=== PATIENT | female | born 1945 | race American Indian/Alaskan Native ===

== ENCOUNTER 2021-07-09 10:15 | Emergency (ER) | payer MEDICARE ==
--- NOTE | 2021-07-09 12:53 | Emergency Department Report ---
- General Chief complaint: Skin/Abscess/Foreign Body Stated complaint: KNOT ON HEAD Time Seen by Provider: 07/09/21 12:43 Source: patient Mode of arrival: Ambulatory Limitations: No Limitations - History of Present Illness Initial comments: 75-year-old -[place] female presents to the emergency room stating that she noticed she had a knot on the right side of her head. Patient states that it was the size of a walnut and then later on it was the size of a half limited and states that it has gone down. She states she just feels pressure behind her right eye and pain behind her right ear. She denies any fever denies any injuries. She denies any change in vision and has taken nothing for her pain. She has a past medical history of hypertension diabetes acid reflux and hypothyroidism. Patient denies being on any blood thinners. She states that she did not take her blood pressure medication today. Her primary care provider is Dr. Rupert Kang. Onset/Timin -: days(s) Tetanus Up to Date: yes Location: head Severity scale (0 -10): 2 Quality: other (Tender) Consistency: intermittent Improves with: none Worsens with: palpation Context: none Associated symptoms: denies other symptoms Treatments Prior to Arrival: none - Related Data Previous Rx's Medication Instructions Recorded Last Taken Type Doxycycline Hyclate [Doxycycline 100 mg PO Q12HR 7 Days #14 tab 07/09/21 Unknown Rx Hyclate TAB] Allergies Allergy/AdvReac Type Severity Reaction Status Date / Time clindamycin HCl Allergy Dizziness Unverified 01/17/14 08:35 [From Cleocin] clindamycin palmitate HCl Allergy Dizziness Unverified 01/17/14 08:35 [From Cleocin] clindamycin phosphate Allergy Dizziness Unverified 01/17/14 08:35 [From Cleocin] Penicillins Allergy Hives Unverified 01/17/14 08:35 Sulfa (Sulfonamide Allergy Hives Unverified 01/17/14 08:35 Antibiotics) Abscess Boil HPI - HPI Chief Complaint: Skin/Abscess/Foreign Body Stated Complaint: KNOT ON HEAD Time Seen by Provider: 07/09/21 12:43 Home Medications: Previous Rx's Medication Instructions Recorded Last Taken Type Doxycycline Hyclate [Doxycycline 100 mg PO Q12HR 7 Days #14 tab 07/09/21 Unknown Rx Hyclate TAB] Allergies/Adverse Reactions: Allergies Allergy/AdvReac Type Severity Reaction Status Date / Time clindamycin HCl Allergy Dizziness Unverified 01/17/14 08:35 [From Cleocin] clindamycin palmitate HCl Allergy Dizziness Unverified 01/17/14 08:35 [From Cleocin] clindamycin phosphate Allergy Dizziness Unverified 01/17/14 08:35 [From Cleocin] Penicillins Allergy Hives Unverified 01/17/14 08:35 Sulfa (Sulfonamide Allergy Hives Unverified 01/17/14 08:35 Antibiotics) ED Review of Systems ROS: Stated complaint: KNOT ON HEAD Other details as noted in HPI Comment: All other systems reviewed and negative ED Past Medical Hx - Medications Home Medications: Home Medications Medication Instructions Recorded Confirmed Last Taken Type Doxycycline Hyclate [Doxycycline 100 mg PO Q12HR 7 Days #14 tab 07/09/21 Unknown Rx Hyclate TAB] ED Physical Exam - General Limitations: No Limitations General appearance: alert, in no apparent distress - Head Head exam: Present: other (Right parietal soft mass size of a small grape that is tender to touch. Right posterior auricular tender to touch) - Eye Eye exam: Present: normal appearance, other (wears glasses) - ENT ENT exam: Present: normal external ear exam - Neck Neck exam: Present: normal inspection, full ROM - Respiratory Respiratory exam: Absent: respiratory distress, accessory muscle use - Cardiovascular Cardiovascular Exam: Present: regular rate - Extremities Exam Extremities exam: Present: normal inspection, full ROM - Back Exam Back exam: Present: normal inspection, full ROM - Neurological Exam Neurological exam: Present: alert, oriented X3, normal gait - Psychiatric Psychiatric exam: Present: normal affect, normal mood - Skin Skin exam: Present: warm, dry, intact, normal color. Absent: rash ED Course Vital Signs 07/09/21 11:04 Temperature 98.5 F Pulse Rate 83 Respiratory 17 Rate Blood Pressure 159/96 O2 Sat by Pulse 98 Oximetry ED Medical Decision Making - Medical Decision Making 75-year-old -[place] female presents to the emergency room stating that she noticed she had a knot on the right side of her head. Patient states that it was the size of a walnut and then later on it was the size of a half limited and states that it has gone down. She states she just feels pressure behind her right eye and pain behind her right ear. She denies any fever denies any injuries. She denies any change in vision and has taken nothing for her pain. She has a past medical history of hypertension diabetes acid reflux and hypothyroidism. Patient denies being on any blood thinners. She states that she did not take her blood pressure medication today. Her primary care provider is Dr. Rupert Kang. Dr. Chatterjee came to evaluate patient as well. Who agreed with treated for ce llulitis of her scalp. Patient be placed on doxycycline 100 mg twice a day for 7 days. Patient can take pain medication. Increase her fluids follow-up with her doctor. Critical care attestation.: If time is entered above; I have spent that time in minutes in the direct care of this critically ill patient, excluding procedure time. ED Disposition Clinical Impression: Cellulitis and abscess of head Disposition: 01 HOME / SELF CARE / HOMELESS Is pt being admited?: No Does the pt Need Aspirin: No Condition: Stable Instructions: Cellulitis, Adult, [id number] Additional Instructions: Take antibiotics as prescribed. Tylenol ibuprofen for pain as needed. Prescriptions: Doxycycline Hyclate [Doxycycline Hyclate TAB] 100 mg PO Q12HR 7 Days #14 tab Referrals: RUPERT KEY MD [Referring] - 3-5 Days Time of Disposition: 13:06
--- NOTE | 2021-07-09 13:02 | Event Note ---
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 Patient presented with 1 day history of scalp swelling in the right parietal area. There is no trauma associated with this. She states that the area is tender. The pain has extended caudally. She has no fevers or chills per there is no cough congestion. On exam, patient is a well-developed female in no distress but she does not appear to be toxic. She has a tender and boggy area in the right parietal area. There is warmth and erythema associated with this. This is consistent with a cellulitis. She does not have pain out of proportion to exam. This does not appear to be indurated consistent with an abscess. She was treated symptomatically and empirically for a cellulitis and referred for outpatient evaluation and follow-up.
[2021-07-09 13:31] VITALS: BP 160/85
== END 2021-07-09 13:31 | disposition home or self-care (01) ==
LOC: ED 10:15
DX: L02.811 Cutaneous abscess of head [any part, except face] (principal); L03.811 Cellulitis of head [any part, except face]; Z88.0 Allergy status to penicillin; Z88.2 Allergy status to sulfonamides; Z88.8 Allergy status to other drugs, medicaments and biological substances; Z88.1 Allergy status to other antibiotic agents; Z79.899 Other long term (current) drug therapy
CPT/HCPCS: 99282